=== PATIENT | female | born 1960 | race Caucasian/White ===

== ENCOUNTER 2025-10-03 12:05 | Emergency (ER) | payer OTHER, SELFPAY ==
--- NOTE | ~2025-10-03 | XR_ITS ---
Examination: XR hand LT min 3V, XR hand RT min 3V Clinical History: dog bite Comparison: None Technique: 3 views left hand, 3 views right hand Findings/impression: Left hand: 1. No radiopaque foreign body. 2. No fracture or acute bony abnormality. Right hand: 1. No radiopaque foreign body. 2. No fracture or acute bony abnormality. Reviewed, dictated and finalized at location [facility]
[2025-10-03 12:05] VITALS: BP 125/92; PULSE 126; RESP 16; TEMP 36.6; O2SAT 99
--- NOTE | 2025-10-03 12:40 | PC.NURSE ---
Pt. reports feeling like she is going to pass-out. Pt. became pale. Pt. provided with juice and moved to a monitored room. RISSA Almanza witnessed event.
--- NOTE | 2025-10-03 13:05 | ED_ITS ---
HPI - Animal Bite General Chief Complaint: Animal Bite <JUAN Clifton Last Filed: 10/03/25 17:42> Stated Complaint: dog bite <JUAN Clifton Last Filed: 10/03/25 17:42> Time Seen by Provider: 10/03/25 12:22 <JUAN Clifton Last Filed: 10/03/25 17:42> Source: patient <JUAN Clifton Last Filed: 10/03/25 17:42> Mode of arrival: ambulatory <JUAN Clifton Last Filed: 10/03/25 17:42> Limitations: no limitations <JUAN Clifton Filed: 10/03/25 17:42> History of Present Illness HPI narrative: Patient is a 65 y/o female who presents to the ED with c/o dog bites to bilateral hands. Patient reports her and her friend's dogs were playing when 1 of the dogs caught their jaw caught in the other's collar. She attempted to help break up the dogs and sustained bites to both hands. She does report numbness/tingling/pins/needle sensation to R hand 2nd/3rd digits, L hand 4th/5th digits. Dogs are up-to-date on vaccines. She is unsure of last tetanus shot. <JUAN Clifton Last Filed: 10/03/25 17:42> Related Data Allergies/Adverse Reactions: Allergies Allergy/AdvReac Type Severity Reaction Status Date / Time Penicillins Allergy Unknown Unknown Verified 10/03/25 12:06 <JUAN Clifton Last Filed: 10/03/25 17:42> Review of Systems Review of Systems: All systems reviewed & are unremarkable except as noted in HPI. <JUAN Clifton Last Filed: 10/03/25 17:42> All systems reviewed & are unremarkable except as noted in HPI and below <JUAN Clifton Last Filed: 10/03/25 17:42> Exam Narrative: GENERAL: Well appearing, well-nourished, non-toxic, in no acute distress. HEAD: Normocephalic, atraumatic. RESPIRATORY: Airway patent, respirations nonlabored. Clear to auscultation bilaterally, no rales, rhonchi, wheezing. CARDIOVASCULAR: Regular rate and rhythm without murmurs, rubs, or gallops. Radial pulses intact MUSCULOSKELETAL: Moves all extremities. SKIN: Warm, dry, normal color. NEURO: A&O X3. Speech clear. Cranial nerves II-XII grossly intact. Steady gait. No ataxic movements. PSYCHIATRIC: Appropriate mood and affect. Normal interaction. R hand: Large approximately 3 cm jagged laceration to thenar eminence, deep center to laceration. Minimal active bleeding. Slight decreased sensation surrounding laceration in extending into distal tips of 2nd and 3rd digits. A few small scattered puncture wounds to digits without active bleeding L hand: Approximately 2 cm laceration to medial/flexor aspect of left 4th digit, lateral to PIP joint with swelling bruising of joint, focal tenderness to palpation. Decreased sharp touch sensation throughout digit. Large approximately 3 cm curvilinear laceration to left 5th digit flexor surface over distal phalange region/distal finger pad. Minimal active bleeding. Decreased sharp touch sensation to distal tip of finger. <Leatha Goins PA-C - Last Filed: 10/03/25 17:42> Course MANAGER [employer]UAL [employer]/PA Physician Supervision This visit was performed by both a physician and an Advanced Practice Provider. I performed all aspects of the Medical Decision Making as documented. <Thomas Freitas DO - Last Filed: 10/03/25 18:22> Vital Signs Vital signs: Vital Signs Temperature 98 F 10/03/25 12:05 Pulse Rate 126 H 10/03/25 12:05 Respiratory Rate 16 10/03/25 12:05 Blood Pressure 125/92 H 10/03/25 12:05 Pulse Oximetry 99 10/03/25 12:05 Oxygen Delivery Room Air 10/03/25 12:05 Temperature 98 F 10/03/25 12:05 Pulse Rate 126 H 10/03/25 12:05 Respiratory Rate 16 10/03/25 12:05 Blood Pressure 125/92 H 10/03/25 12:05 Pulse Oximetry 99 10/03/25 12:05 Oxygen Delivery Room Air 10/03/25 12:05 <Leatha Goins PA-C - Last Filed: 10/03/25 17:42> Vital Signs Temperature 98 F 10/03/25 12:05 Pulse Rate 126 H 10/03/25 12:05 Respiratory Rate 16 10/03/25 12:05 Blood Pressure 125/92 H 10/03/25 12:05 Pulse Oximetry 99 10/03/25 12:05 Oxygen Delivery Room Air 10/03/25 12:05 Temperature 98 F 10/03/25 12:05 Pulse Rate 126 H 10/03/25 12:05 Respiratory Rate 16 10/03/25 12:05 Blood Pressure 125/92 H 10/03/25 12:05 Pulse Oximetry 99 10/03/25 12:05 Oxygen Delivery Room Air 10/03/25 12:05 <Thomas Freitas DO - Last Filed: 10/03/25 18:22> MDM - Animal Bite MDM Narrative Medical decision making narrative: Patient presented to ED with dog bites to bilateral hands. Reporting sensory changes, numbness/tingling, pins and needles sensation to multiple fingers on bilateral hands. Decreased sharp touch sensation to several digits on exam. X-ray of bilateral hands without acute fracture or foreign body. Tetanus updated in the ED Patient has penicillin allergy. Started on cefuroxime and metronidazole for antibiotic prophylaxis per EMRA guidelines Given presence of deep wounds with sensory changes, will discuss with hand surgery for possible vascular /nerve injury, wash out. Discussed case with Dr. Madrigal, ortho/hand @ [facility], will consult and see patient in the ED. Discussed case with Dr. Mckeon, EDP @ [facility], accepted patient for transfer. Patient in agreement with plan and need for transfer. Will go by private vehicle. Advised to go straight to [facility]. Do not eat or drink. <Leatha Goins PA-C - Last Filed: 10/03/25 17:42> Patient presented to ED with dog bites to bilateral hands. Reporting sensory changes, numbness/tingling, pins and needles sensation to multiple fingers on bilateral hands. Decreased sharp touch sensation to several digits on exam. X-ray of bilateral hands without acute fracture or foreign body. Tetanus updated in the ED Patient has penicillin allergy. Started on cefuroxime and metronidazole for antibiotic prophylaxis per EMRA guidelines Given presence of deep wounds with sensory changes, will discuss with hand surgery for possible vascular /nerve injury, wash out. Discussed case with Dr. Madrigal, ortho/hand @ [facility], will consult and see patient in the ED. Discussed case with Dr. Mckeon, EDP @ [facility], accepted patient for transfer. Patient in agreement with plan and need for transfer. Will go by private vehicle. Advised to go straight to [facility]. Do not eat or drink. This visit was performed by both a physician and an Advanced Practice Provider. I performed all aspects of the Medical Decision Making as documented. <Thomas Freitas DO - Last Filed: 10/03/25 18:22> Differential Diagnosis Differential diagnosis: Likely bite by animal, dog bite, rabies contact and other (Laceration, vascular injury, neuro injury) <DO Vasyl Mace Last Filed: 10/03/25 18:22> Medical Records Attestation: I reviewed the patient's medical records. <JUAN Clifton Last Filed: 10/03/25 17:42> Imaging Data Attestation: I personally reviewed and interpreted this imaging study as follows: <JUAN Clifton Last Filed: 10/03/25 17:42> Discharge Plan Discharge Clinical Impression: Decreased sensation Dog bite of right palm Qualifiers: Encounter type: initial encounter Qualified Code(s): S61.451A - Open bite of right hand, initial encounter Dog bite of multiple sites of left hand and fingers Qualifiers: Encounter type: initial encounter Qualified Code(s): S61.452A - Open bite of left hand, initial encounter <JUAN Clifton Last Filed: 10/03/25 17:42> Patient Disposition: Acute Care Hospital <JUAN Clifton Last Filed: 10/03/25 17:42> Condition: Stable <UJAN Clifton Last Filed: 10/03/25 17:42> Additional Instructions: GO STRAIGHT TO [facility] EMERGENCY DEPARTMENT. DO NOT EAT OR DRINK. <JUAN Clifton Last Filed: 10/03/25 17:42> Patient Language: Vincentian <JUAN Clifton Filed: 10/03/25 17:42> Follow-up/Referrals: PHYSICIAN,STITCH BONDING MACHINE OPERATOR [Primary Care Provider, Internal Medicine] <Leatha Goins PA-C - Last Filed: 10/03/25 17:42> Time of Disposition: 15:04 <Leatha Goins PA-C - Last Filed: 10/03/25 17:42> 15:04 <Thomas Freitas DO - Last Filed: 10/03/25 18:22>
[2025-10-03] MEDS: TETANUS,DIPHTHERIA,AC PERTUSSIS ADULT (0.5 ML) BOOSTRIX IM (13:20)
--- OUTSIDE RECORDS SUMMARY | 2025-10-03 18:35 | XMS_ITS | Clinical Summary ---
Author Organization [facility] [employer] Address [address] [place] [address] Care Team Providers Care Transcriber Name Role Phone Anabel Abraham MD Unavailable [phone] Lili Mason MD Unavailable Pcp, [facility] Primary Care Provider Un available Source Comments [facility],non-owned Affiliates and Associated Physician Practices is amultiple site organization consisting of ambulatory clinics and hospital sitesin [place], [place] and [place]. This disclosure is being madepursuant to the Care Everywhere program and may not contain all information available regarding this patient. Last updated 18.[facility] Allergies Active Allergy Reactions Criticality Noted Date Comments Penicillins Rash,Unknown Medium 08/03/2017 Reaction: Rash, Reaction: Rash, Reaction: Rash, Medications * Be aware that medications may not be up to date on this document. Alwaysverify current medications with the patient. doxycycline monohydrate 100 MG capsule TAKE 1 CAPSULE BY MOUTH TWICE DAILY FOR 2 WEEKS NEEDED FOR FLARES 09/06/2022 Active Soolantra 1 % 03/09/2022 Activ e atorvastatin (Lipitor) 20 MG tablet Take 1 (one) tablet by mouth once daily 90 tablet 3 11/08/2022 Active cyclobenzaprine (Flexeril) 10 MG tablet Take 0.5 (one-half) tablet by mouth 3 times daily as needed for Muscle Spasms 15 tablet 11/08/2022 Active Active Problems Problem Noted Date Diagnosed Date Palpitations 08/30/2021 Overview (08/30/2021): feels palpitations every day. has been feeling this for the past 10-13 years. says that it goes away after she coughs or clears her throat. no lightheadedness, chest pain or SOB. Says that she had a sticky valve on previous echo. had workup, including ECG and holter, previously which was normal. Assessment/Plan: -ECG -given history of abnormal valve, repeat echo -repeat cardiac nurse practitioner Pure hypercholesterolemia 08/25/2021 Overview (08/30/2021): cooks well rounded meals for herself at home. Doesn't eat much fast food. tried to get about two servings of vegetables a day. Assessment/Plan: -ASCVD risk of 6.8%. -start lipitor 20 mg daily. Leg cramps 08/25/2021 Overview (08/30/2021): leg cramps have been going on for about a year. occurs with any sort of movement. seems to happen more at night time. drinks several cups of coffee in the morning and then drinks a few glasses of water at work. Will think drink a soda during the day. Doesn't drink much water in the evening. 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 Assessment/Plan: -gradual stretching and increase activity during the day -check Mg and electrolytes. Pruritus 08/25/2021 Overview (08/30/2021): has noticed this for about two years. notices that when she gets flushed (hot flashes are milder now), her symptoms are worse. When out in the heat itchying gets worse as well. Itching is on the back mostly. Sees dermatology for rosacea and BCC and told them about this and they were not concerned. Assessment/Plan: -outside labs show a mild elevated hgb. will recheck CBC for polycythemia as a possible cause. Resolved Problems Problem Noted Date Diagnosed Date Resolved Date Screening for colon cancer 06/23/2021 1 Overview (08/25/2021): Added automatically from request for surgery [id number] Immunizations Immunization Administration Dates Next Due INFLUENZA VACCINE, QUADR. (F LUZONE; FLULAVAL; FLUARIX; AFLURIA QUADRIVALENT; 6MO+), 0.5 ML (IIV4) 10/02/2022,08/25/2021,09/20/2019 MODERNA SARS-COV-2 COVID-19 VACCINE 0.25ML 06/07 Zoster Hzv Vacc Recombinant Inj Im 10/03/2022 Family History Medical History Relation Name Comments CAD (Coronary Artery Disease) Mother Relation Name Status Comments Father Alive Mother Social History Tobacco Use Types Packs/Day Years Used Date Smoking Tobacco: Every Day Cigarettes 1 46.9 Started: 10/26/1978 Smokeless Tobacco: Never Tobacco Cessation:Ready to Q uit: No; Counseling Given: No Alcohol Use Standard Drinks/Week Comments Not Currently 0 (1 standard drink = 0.6 oz pur e alcohol) PHQ-2 Answer Date Recorded PHQ2 TOTAL SCORE 0 11/08/2022 Comments Unknown Sex and Gender Information Value Date Recorded Sex Assigned at Female 08/18/2021 9:03 AM CDT Legal Sex Female 5:51 AM LENS MOLDING EQUIPMENT OPERATOR Gender Identity Female 08/18/2021 9:03 AM CDT Sexual Orientation Not on file 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 Not on file Not on file N ot on file Last Filed Vital Signs Vital Sign Reading Time Taken Comments Blood Pressure 140/75 11/08/2022 8:24 AM LENS MOLDING EQUIPMENT OPERATOR Pulse 80 11/08/2022 8:24 AM LENS MOLDING EQUIPMENT OPERATOR Temperature 36.7 C (98.1 F) 08/25/2021 8:17 AM CDT Respiratory Rate - - Oxygen Saturation 96% 11/08/2022 8:24 AM LENS MOLDING EQUIPMENT OPERATOR Inhaled Oxygen Concentration - - Weight 92.1 kg (203 lb) 11/08/2022 8:24 AM LENS MOLDING EQUIPMENT OPERATOR Height 172.7 cm (5' 8) 11/08/2022 8:24 AM LENS MOLDING EQUIPMENT OPERATOR Body Mass Index 30.87 11/08/2022 8:24 AM LENS MOLDING EQUIPMENT OPERATOR Plan of Treatment Health Maintenance Due Date Last Done Comments COLOGUARD (AGES 45-75) - COLON CA SCREENING 1962 CT COLONOGRAPHY - COLON CA SCREENING 1962 FIT - COLON CA SCREENING 1962 FLEX SIG - COLON CA SCREENING 1962 HIV SCREENING 1977 HEPATITIS C SCREENING 04/19/1980 DTAP/TDAP/TD VACCINES (1 - Tdap) 1981 PNEUMOCOCCAL VACCINE 50+ (1 of 2 - PCV) 1981 LUNG CANCER SCREENING 2012 ZOSTER VACCINE (2 of 2) 11/28/2022 10/03/2022 MAMMOGRAM 06/29/2023 06/29/2021 (Done Outside Per Report) PAP SMEAR 06/23/2024 06/23/2021 (Done Outside Per Report) DEPRESSION SCREENING 11/20/2024 11/08/2022 COVID-19 VACCINE ( season) 2025 10/20/2022, 06/07/2022, 10/28/2021, Additional history exists INFLUENZA VACCINE (#1) 2025 , 10/02/2022, 08/25/2021, Additional history exists SCREENING FOR DIABETES 11/05/2025 11/05/2022, 2021 COLON MONITORING 09/13/2031 09/13/2021 COLONOSCOPY - COLON CA SCREENING 09/13/2031 09/13/2021, 09/13/2021 (Done Outside Per Report) Colorectal Cancer Screening 09/13/2031 Respiratory Syncytial Virus (RSV) Vaccine Pt: or over 60 yrs (1 - 1-dose 75+ series) 2037 HEPATITIS B VACCINE Aged Out No longe r eligible based on patient's age to complete this topic HIB VACCINE Aged Out No longer eligi ble based on patient's age to complete this topic HPV VACCINE Aged Out No longer eligi ble based on patient's age to complete this topic MENINGOCOCCAL (Group B) VACCINE SHARED DECISION-MAKING Aged Out No longer eligible based on patient's age to complete this topic MENINGOCOCCAL GROUPS A/C/Y/W VACCINE Aged Out No longer eligible based on patient's age to complete this topic Procedures Procedure Name Priority Date/Time Associated Diagnosis Comments HEMOGLOBIN A1C Routine 11/05/2022 8:32 AM LENS MOLDING EQUIPMENT OPERATOR Screening for diabetes mellitus COLONOSCOPY 09/13/2021 from Last 3 Months or Most Recently Relevant to Health Maintenance Results * HEMOGLOBIN A1C (HgbA1C) (11/05/2022 8:32 AM LENS MOLDING EQUIPMENT OPERATOR) Hemoglobin A1c 5.6 4.8 - 5.6 % [facility] ACCOUNT BILL Comment: . Prediabetes: 5.7 - 6.4 Diabetes: >6.4 Glycemic control for adults with diabetes: <7.0 Blood BLOOD SPECIMEN / Unknown 11/05/2022 8:32 AM LENS MOLDING EQUIPMENT OPERATOR 11/05/2022 Narrative Resulting Agency Comment Lab Testing performed at: [facility] [address] [id number] us John Wick MD LAB - CHEMISTRY ORDERABLES Fin al Result [facility] ACCOUNT BILL [address] [place] [address] * COLONOSCOPY (09/13/2021) 09/13/2021 Narrative 09/13/2021 Ordered by an unspecified provider. us Scanned Document SCANNING ONLY Final Result from Last 3 Months or Most Recently Relevant to Health Maintenance Insurance [employer] Care Teams Transcriber Relationship Specialty Start Date End Date Pcp, [facility] PCP - General 06/16/23 Anabel Abraham MD [id number] [facility] [address] [place] [address] Obstetrics and Gynecology 08/25/21 Lili Mason MD [id number] [place] [id number] Dermatology 08/25/21
== END 2025-10-03 15:14 | disposition short-term general hospital (02) ==
PROVIDERS: Emergency Provider Physician Assistant
DX: S61.451A Open bite of right hand, initial encounter (principal); S61.452A Open bite of left hand, initial encounter; Z23 Encounter for immunization; W54.0XXA Bitten by dog, initial encounter
CPT/HCPCS: 73130; 90471; 90715; 99284; A9270